=== PATIENT | female | born 1985 | race American Indian/Alaskan Native ===

== ENCOUNTER 2016-06-18 03:28 | Emergency (ER) | payer OTHER ==
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
[~2016-06-18 03:28] MED LIST: ALEVE220 M1 PO; ATARAX PO; HYDROXYZINE HCL25 M1 DOB; KEFLEX500 M1 PO; KLONOPIN1 MG PO; MACROBID100 MG DOB; MACROBID100 MG PO; MAGIC MOUTHWASH PO; MOBIC15 MG PO; PRENATAL VITAMI1 TA3 PO; PRENATAL1 TA1 PO; SUDAFED PLUS PO; VISTARIL PO; ZANAFLEX4 M1 PO; ZOFRAN ODT4 MG PO
== END 2016-06-18 05:05 | disposition home or self-care (01) ==
LOC: CED 03:28
DX: S01.111A Laceration without foreign body of right eyelid and periocular area, initial encounter (principal); S60.222A Contusion of left hand, initial encounter; F17.200 Nicotine dependence, unspecified, uncomplicated; W22.8XXA Striking against or struck by other objects, initial encounter; Y92.410 Unspecified street and highway as the place of occurrence of the external cause; Z23 Encounter for immunization
CPT/HCPCS: 12011; 70450; 73130; 84703; 90471; 90715; 99284

== ENCOUNTER 2016-06-25 17:48 | Emergency (ER) | payer OTHER ==
--- NOTE | ~2016-06-25 | CR172 ---
[facility] A Service of [facility] & [facility] RADIOLOGY TEXT RESULTS PATIENT: ANICETO OWEN LOCATION: [facility] : 85 UNIT #: [id number] AGE: [address]: Chloé Mott SEX: F ORDER DR: [id number] [facility] [address] [facility]. [place], [place] [address] [id number] E MR#: [id number] Acc #: [id number] NAME: ANICETO OWEN : 1985 SEX: F STUDY DATE/TIME: 06/25/2016 17:25 UNIT: [facility] ROOM: STUDY DESCRIPTION: CR Knee 3 Views Lt Attending Physician: Chloé Mott P.A.-C. Ordering Physician: Chloé Mott P.A.-C. Primary Care Physician: Primary Care Physician No MEDICAL IMAGING REPORT This report is preliminary unless electronic signature is present EXAM Left knee, 3 views COMPARISON September 04, 2015. INDICATIONS 30-year-old female with left knee pain and erythema after falling through the floor of her apartment today. FINDINGS No suprapatellar effusion. No radiopaque foreign body. Bones are anatomically aligned. No evidence of acute fracture or degenerative change. IMPRESSION Normal exam. Dictated by... Michael Crawley M.D. THIS IS AN ELECTRONICALLY VERIFIED REPORT Michael Crawley M.D. at 06/29/2016 8:26 AM THAD/january TD: 06/25/2016 22:10 JOB #: [id number] MEDICAL IMAGING REPORT Page 1 of 1 COPY
== END 2016-06-25 18:39 | disposition home or self-care (01) ==
LOC: CFTX 17:48
DX: S83.411A Sprain of medial collateral ligament of right knee, initial encounter (principal); R11.0 Nausea; F41.9 Anxiety disorder, unspecified; K21.9 Gastro-esophageal reflux disease without esophagitis; Z87.442 Personal history of urinary calculi; W18.30XA Fall on same level, unspecified, initial encounter; Y92.009 Unspecified place in unspecified non-institutional (private) residence as the place of occurrence of the external cause
CPT/HCPCS: 29530; 73562; 99283

== ENCOUNTER 2016-08-06 10:28 | Emergency (ER) | payer OTHER | END 2016-08-06 12:30 | disposition home or self-care (01) | LOC: CFTX 10:28 → CED 10:28 → CFTX 11:55 | DX: J06.9 Acute upper respiratory infection, unspecified (principal); K21.9 Gastro-esophageal reflux disease without esophagitis; Z88.0 Allergy status to penicillin; Z88.2 Allergy status to sulfonamides | CPT/HCPCS: 87651; 99283 ==

== ENCOUNTER → 2016-08-09 | Outpatient (CLI) | payer OTHER ==
[~2016-08-09] MED LIST changes: +BENTYL10 MG PO; +CARAFATE1 GM PO; +COLESTID PO; +HYDROXYZINE HCL25 M1 PO; +PROTONIX PO; +VITAMIN D2000 UNIT PO
--- NOTE | ~2016-08-09 | CT2 ---
[facility] A Service of [facility] & [facility] RADIOLOGY TEXT RESULTS PATIENT: ANICETO OWEN [facility] UNIT #: [id number] AGE: [address]: REMI PAREDES APRN SEX: F ORDER DR: [id number] [facility] [address] [facility]. [place], [place] [address] [id number] O MR#: [id number] Acc #: [id number] NAME: ANICETO OWEN : 1985 SEX: F STUDY DATE/TIME: 08/09/2016 9:35 UNIT: [facility] ROOM: STUDY DESCRIPTION: CT Abd and Pelv W Cont Attending Physician: Remi Paredes Aprn Referring Physician: Remi Paredes Aprn Ordering Physician: Remi Paredes Aprn Primary Care Physician: Remi Paredes Aprn MEDICAL IMAGING REPORT This report is preliminary unless electronic signature is present EXAM CT abdomen and pelvis. INDICATION Bilateral lower quadrant abdominal pain. Mid abdominal pain. Nausea and diarrhea for 5 years. Increasing severity. Gastroesophageal reflux. TECHNIQUE CT abdomen and pelvis with p.o. and IV contrast (100 mL Isovue-370 IV contrast). Coronal and sagittal reconstructions were obtained. This CT exam was performed with one or more of the following radiation dose reduction techniques: automatic exposure control, adjustment of mA and/or kV according to patient size, and iterative reconstruction. COMPARISON 04/26/2015. FINDINGS ABDOMEN: The liver enhances normally. There is mild prominence of the extrahepatic common duct in a patient status post cholecystectomy. The duct measures 6-7 mm in diameter, unchanged from the prior study. There are some tiny calcifications along the posterior margin of the liver at the hepatorenal recess. These are likely small dropped gallstones. There are a few other small calcifications in the peritoneal cavity which supports the presence of dropped gallstones. No focal inflammatory change identified around these areas. The patient is status post cholecystectomy. The pancreas, spleen, adrenal glands, and kidneys are within normal limits. No hydronephrosis. There is a small umbilical hernia. The bowel is not dilated. The appendix is normal. PELVIS: Uterus and ovaries are within normal limits. No pelvic mass or STS. [facility] A Service of [facility] RADIOLOGY TEXT RESULTS PATIENT: ANICETO OWEN LOCATION: [facility] : 85 UNIT #: [id number] AGE: [address]: REMI PAREDES APRN SEX: F ORDER DR: free pelvic fluid. There is bilateral to ligation clips. Bladder is unremarkable. No enlarged pelvic or inguinal lymph nodes. The abdominal aorta is small in caliber measuring 1 cm in diameter. This is unchanged. No acute osseous abnormalities. IMPRESSION 1. No acute findings in the abdomen or pelvis to account for the patient's symptoms. There is no change from the patient's prior study. Dictated by... Jaison Valero M.D. THIS IS AN ELECTRONICALLY VERIFIED REPORT Jaison Valero M.D. at 08/09/2016 6:42 PM LIVAN/ivis TD: 08/09/2016 15:51 JOB #: [id number] MEDICAL IMAGING REPORT Page 1 of 1 COPY
== END | disposition home or self-care (01) ==
LOC: CCAT 08:20
DX: K21.0 Gastro-esophageal reflux disease with esophagitis (principal); R19.7 Diarrhea, unspecified
CPT/HCPCS: 74177; Q9967

== ENCOUNTER 2016-09-08 08:35 | Emergency (ER) | payer OTHER ==
--- NOTE | ~2016-09-08 | CR72 ---
[facility] A Service of [facility] & [facility] RADIOLOGY TEXT RESULTS PATIENT: ANICETO OWEN LOCATION: [facility] : 85 UNIT #: [id number] AGE: [address]: Chloé Mott SEX: F ORDER DR: [id number] [facility] [address] [place], [place] [address] [id number] E MR#: [id number] Acc #: [id number] NAME: ANICETO OWEN : 1985 SEX: F STUDY DATE/TIME: 09/08/2016 9:15 UNIT: [facility] ROOM: STUDY DESCRIPTION: CR Chest Single View Portable Attending Physician: Chloé Mott P.A.-C. Ordering Physician: Chloé Mott P.A.-C. Primary Care Physician: Remi Parks Aprn MEDICAL IMAGING REPORT This report is preliminary unless electronic signature is present EXAM Portable chest, 09/08/2016. HISTORY A 30-year-old woman, short of air with symptoms beginning today. History of irregular heart rate. COMPARISON STUDIES 12/23/2015. FINDINGS AP upright portable chest demonstrates normal cardiac size and configuration. Hilar structures and mediastinal contours are preserved. Bilateral lungs are expanded and clear. Costophrenic angles are clear. IMPRESSION Negative chest. Dictated by... Edgar Esteves M.D. THIS IS AN ELECTRONICALLY VERIFIED REPORT Edgar Esteves M.D. at 09/08/2016 12:22 PM Aleena TD: 09/08/2016 12:03 JOB #: [id number] MEDICAL IMAGING REPORT Page 1 of 1 COPY
--- NOTE | ~2016-09-08 | EKG ---
PATIENT: ANICETO OWEN UNIT #: [id number] Ventricular Rate: 88 BPM Atrial Rate: 88 BPM P-R Interval: 140 ms QRS Duration: 104 ms Q-T Interval: 350 ms QTC Calculation(Bezet): 423 ms P Ensign: 38 degrees Calculated R Ensign: 26 degrees Calculated T Ensign: 28 degrees Diagnosis Line: Normal sinus rhythm Diagnosis Line: Incomplete right bundle branch block Diagnosis Line: Otherwise normal ECG Diagnosis Line: When compared with ECG of 23-DEC-2015 04:31, Diagnosis Line: No significant change was found Diagnosis Line: Confirmed by KATHIE YORK MD ([id number]) on 09/08/2016 Diagnosis Line: 5:43:29 PM INTERPRETING MD: CHELA ARTIS
[~2016-09-08 08:35] MED LIST changes: -BENTYL10 MG PO; -CARAFATE1 GM PO; -COLESTID PO; -HYDROXYZINE HCL25 M1 PO; -PROTONIX PO; -VITAMIN D2000 UNIT PO
[2016-09-08 09:25] LABS: BASOPHIL% 0.4 % (0-2.5); EOSINOPHIL% 0.5 % (0.0-7.0); HEMATOCRIT 42.6 % (35.0-45.0); HEMOGLOBIN 14.1 gm/dL (12.0-16.0); LYMPHOCYTE# 1.7 X10e3 (1.0-3.5); LYMPHOCYTE% 17.8 % (17.0-45.0); MEAN CELL VOLUME 87.1 FL (83-96); MEAN CORPUSCULAR HEMOGLOBIN 28.8 PG (28-34); MEAN CORPUSCULAR HGB CONC 33.1 g/dL (30-36); MONOCYTE# 0.6 X10e3 (0-1.0); MONOCYTE% 6.6 % (3.0-12.0); NEUTROPHIL# 7.1 X10e3 (1.5-7.1); NEUTROPHIL% 74.7 % (40-75); PLATELET COUNT 230 X10e3 (140-420); RED BLOOD COUNT 4.89 X10e (3.90-5.30); RED CELL DISTRIBUTION WIDTH 13.9 % (11.0-15.5); WHITE BLOOD COUNT 9.5 X10e3 (4.0-10.5)
[2016-09-08 09:26] LABS: DIFF IND NO
[2016-09-08 09:40] LABS: PARTIAL THROMBOPLASTIN TIME 27.9 SECONDS (23.5-31.3); PROTHROMBIN TIME (PATIENT) 10.4 SECONDS (10.0-11.7)
[2016-09-08 09:52] LABS: ALBUMIN SERUM 4.1 g/dL (3.5-5.0); BILIRUBIN, DIRECT 0.1 mg/dL (0.0-0.2); BILIRUBIN,INDIRECT 0.1 mg/dL (0.0-0.9); BILIRUBIN,TOTAL 0.2 mg/dL (0.2-2.0); BUN/CREATININE RATIO 13.33; CALCIUM SERUM 9.2 mg/dL (8.4-10.2); CREATININE SERUM 0.6 mg/dL (0.6-1.4); GLOM FILT RATE Estimated 122.3 mL/min (>60); POTASSIUM 3.7 mmol/L (3.5-5.1); PROTEIN TOTAL SERUM 7.8 g/dL (6.0-8.3)
[2016-09-08 10:05] LABS: POC - CKMB <1.0 ng/mL (0.0-7.9); POC - TROPONIN <0.05 ng/mL (<=0.05)
== END 2016-09-08 10:48 | disposition home or self-care (01) ==
LOC: CED 08:35
PROVIDERS: Physician Assistant
DX: R06.02 Shortness of breath (principal); F41.9 Anxiety disorder, unspecified; Z90.49 Acquired absence of other specified parts of digestive tract; Z98.51 Tubal ligation status; Z87.891 Personal history of nicotine dependence; Z88.0 Allergy status to penicillin; Z88.2 Allergy status to sulfonamides; Z88.1 Allergy status to other antibiotic agents; Z88.8 Allergy status to other drugs, medicaments and biological substances
CPT/HCPCS: 36415; 71010; 80048; 80076; 82553; 84484; 85025; 85379; 85610; 85730; 93005; 94640; 96374; 99285; J2060

== ENCOUNTER 2016-09-26 13:08 | Observation (INO) | payer OTHER ==
[~2016-09-26] VITALS: Ht 165.1 cm; Wt 110.0 kg
--- NOTE | ~2016-09-26 | OR ---
Unit #: [id number] #: [id number] Patient: ANICETO OWEN [id number] [address] [address] [id number] I MR#: [id number] NAME: ANICETO OWEN ROOM: [facility] Date of Procedure: 09/27/2016 Admission Date: 09/26/2016 Surgeon: Moises Peacock M.D. : 1985 Attending Physician: Blair Wagoner M.D. Primary Care Physician: Remi Parks Aprn OPERATIVE REPORT PROCEDURE PERFORMED EGD with biopsies. INDICATIONS A 30-year-old female with hematemesis, chronic persistent reflux and also with chronic diarrhea undergoing evaluation with upper endoscopy. MEDICATIONS Monitored anesthesia. POSTOPERATIVE FINDINGS 1. Small segment of Leon esophagus, biopsies taken. 2. Normal stomach, biopsies taken looking for Helicobacter pylori. 3. Normal duodenum and distal duodenum. Biopsies taken looking for celiac disease. 4. No clear signs of acute bleeding or stigmata of recent bleeding was seen. PLAN 1. Continue with PPI therapy and reflux precautions. 2. Follow up on pathology report. DESCRIPTION OF PROCEDURE The patient was explained of the procedure, risks, and benefits along with risks and benefits of anesthesia. She was brought to the endoscopy room. Propofol anesthesia was given. Bite block was placed. The scope was passed down the mouth and esophagus, stomach, duodenum, and distal duodenum. Findings as described. Biopsies taken. Gently, I pulled the scope out of the patient's mouth. She tolerated it well. No major complications. Dictated by... Lori Benson/arnaldo TD: 09/27/2016 10:43 JOB #: [id number] Unit #: [id number] #: [id number] Patient: ANICETO OWEN OPERATIVE REPORT Page 1 of 1 X Moises Peaocck MD PROCEDURE OPERATIVE NOTE
--- NOTE | ~2016-09-26 | DS ---
Unit #: [id number] #: [id number] Patient: ANICETO OWEN [id number] [address] [address] [id number] I MR#: [id number] NAME: ANICETO OWEN ROOM: [facility] Age: 30 Sex: F Admission Date: 09/26/2016 : 1985 Discharge Date: 09/27/2016 Attending Physician: Blair Wagoner M.D. Primary Care Physician: Remi Parks Aprn DISCHARGE SUMMARY REASON FOR ADMISSION Severe heartburn, coffee ground emesis. HISTORY OF PRESENT ILLNESS/HOSPITAL COURSE The patient is a 30-year-old female with a prior history of GERD, IBS, anxiety and nephrolithiasis who presented secondary to above. Please see H and P for complete details. She was noted to be heme positive in the emergency room. She was placed on a Protonix drip, and consultation was placed to Dr. Peacock of gastroenterology service. The patient ultimately underwent upper GI endoscopy, as well as biopsy, early this morning. It did show findings consistent with Leon esophagus. Numerous biopsies were obtained, as well. PPI therapy at b.i.d. dosing was recommended, and the patient was felt to be stable to be discharged home if she was able to tolerate lunch. At the present time she states that she feels much better. She will be discharged after lunch with the understanding she will follow up with Dr. Peacock as an outpatient in approximately 4-6 weeks. Her PPI therapy will be increased to b.i.d. dosing. Her other routine home medications will remain as is. No changes have been made with the exception of increasing her PPI. Appropriate dietary modifications have been discussed with the patient. She expressed understanding and agreement at time of discharge. FINAL DISCHARGE DIAGNOSES 1. Intractable gastroesophageal reflux disease. 2. Leon esophagus. 3. Coffee ground emesis, now resolved. 4. Anxiety. 5. Irritable bowel syndrome. 6. Prior history of nephrolithiasis. DISCHARGE MEDICATIONS 1. Colestid 1 gram p.o. b.i.d. 2. Carafate 1 gram p.o. q.6/q.a.c. 3. Bentyl 10 mg p.o. t.i.d. p.r.n. 4. Protonix 40 mg p.o. b.i.d. 5. Atarax 25 mg p.o. q.6 p.r.n. Dictated by... Blair Wagoner M.D. Unit #: [id number] #: [id number] Patient: ANICETO OWEN Frank PICKARD/flor TD: 09/28/2016 09:38 JOB #: [id number] DISCHARGE SUMMARY Page 1 of 1 X Blair Wagoner MD X DISCHARGE SUMMARY
--- NOTE | ~2016-09-26 | HP ---
Unit #: [id number] #: [id number] Patient: ANICETO OWEN [id number] [facility] [address] [facility]. [place], [place] [address] [id number] I MR#: [id number] NAME: ANICETO OWEN ROOM: [address] Age: 30 Sex: F Admission Date: 09/26/2016 : 1985 Attending Physician: Laura La M.D. Primary Care Physician: Remi Parks Aprn HISTORY AND PHYSICAL CHIEF COMPLAINT Severe heartburn, coffee-ground emesis. HISTORY OF PRESENT ILLNESS The patient is a 30-year-old female with past medical history of GERD, IBS, anxiety, nephrolithiasis, "irregular heartbeat", who presented to the emergency department for evaluation of the above. The patient states that she has had abdominal pain or three to four months. She states that it is in the upper abdomen. She describes it as "a constant ache." She denies any exacerbating or alleviating factors. She denied any change in weight. She has had diarrhea for three to four months. She reports seven bouts of diarrhea within the past 24 hours. Yesterday she vomited three to four times coffee-ground emesis. Today she noted bright red blood admixed with vomit. In the emergency department initial pulse and blood pressure were 89 and 138/77 respectively. She was noted to be heme positive. Hemoglobin is 12.9. She was given 80 mg of Protonix followed by Protonix drip at 8 mg per hour. She received 4 mg of Zofran. She is being admitted to [facility] for evaluation and further treatment. Of note, the patient has never had endoscopy. She states that she does have an appointment with an unknown GI physician in September. PAST MEDICAL HISTORY 1. "Irregular heartbeat." The patient does not see a technical writing lead/mgr. She was told that she had an irregular heartbeat during . 2. GERD. 3. Anxiety. 4. Irritable bowel syndrome. 5. Nephrolithiasis. PAST SURGICAL HISTORY 1. Cholecystectomy. 2. Bilateral tubal ligation. SOCIAL HISTORY The patient lives with her and daughter. There is no tobacco use. She reports occasional alcohol use. She denies illicit drug use although she did have a tox screen December 23, 2015 that was positive for cocaine. She is starting a job at [employer] next week. FAMILY HISTORY Unit #: [id number] #: [id number] Patient: ANICETO OWEN Family history is notable for her mother having reflux. ALLERGIES Phenergan, Percocet, Cipro, penicillin, sulfa. HOME MEDICATIONS Hydroxyzine, dicyclomine, sucralfate, Protonix, colestipol. The patient states that she has also been taking over the counter Zantac. REVIEW OF SYSTEMS A complete review of systems is negative except as indicated in the HPI. The patient states that she has been taking up to five [id number] Zantac tablets daily with no relief of symptoms. DIAGNOSTIC STUDIES LABORATORY: Complete blood count is completely normal. Urinalysis is essentially normal. Urine tox screen is negative. Comprehensive metabolic panel notable for potassium of 3.2, alkaline phosphatase 95, lipase is 24, alcohol level is less than 5. PHYSICAL EXAMINATION VITAL SIGNS: Temperature is 99. Pulse 89. Respirations 18. Blood pressure 138/77. Oxygen saturation is 99% on room air. GENERAL: The patient is a very pleasant female who is awake and alert, in no acute distress. HEENT: The head is atraumatic. Mucous membranes are moist. NECK: Neck is supple. Trachea is midline. CARDIOVASCULAR: Regular rate and rhythm. LUNGS: Lungs are clear to auscultation bilaterally with no increased work of breathing. ABDOMEN: Abdomen is soft. She is tender to palpation in the epigastric area. Bowel sounds are present in all four quadrants. EXTREMITIES: Nontender, with no pedal edema. NEUROLOGIC: The patient is awake and alert. She follows commands. PSYCHIATRIC: Mood and affect are normal. The patient is cooperative. SKIN: Demonstrates multiple tattoos. ASSESSMENT The patient is a 30-year-old female with: 1. Gastrointestinal bleed. The patient received 80 mg of Protonix in the emergency department followed by Protonix drip at 8 mg per hour. She has never had endoscopy. The patient's initial hemoglobin is 12.9. 2. Abdominal pain. 3. Gastroesophageal reflux disease. 4. Irritable bowel syndrome. 5. Anxiety. 6. Nephrolithiasis. 7. History of "irregular heartbeat." PLAN 1. Admit for observation to med/surg. 2. Clear liquid diet for possible endoscopy. 3. N.p.o. after midnight. 4. Normal saline at 125 mL an hour. 5. Protonix drip at 8 mg per hour. 6. Hemoglobin and hematocrit q.6 h. 7. Stool for ova and parasites, C. diff., culture and sensitivity. Unit #: [id number] #: [id number] Patient: JULIA SPAULDINGANICETO ROMERO 8. Consult Dr. Peacock regarding GI bleed. 9. Hemoglobin and hematocrit q.6 h. 10. P.r.n. Zofran. 11. Check magnesium level. 12. Potassium and magnesium protocol. 13. Repeat labs in the morning including magnesium. 14. SCDs for DVT prophylaxis. 15. Additional workup and consultants based on above. Dictated by Lori Ruggiero/kassidy TD: 09/26/2016 20:40 JOB #: [id number] HISTORY AND PHYSICAL Page 1 of 1 X Laura La MD X HISTORY AND PHYSICAL
--- NOTE | ~2016-09-26 | BMI ---
[facility] Nutrition Therapy DATE: 09/27/16 Patient: ANICETO DUMONT SPAULDING Physician: SARI Address: [address] [place] [address] Room/Bed: [address] [place] [address], Zip: [place] [address] Admit Date: 09/26/16 Date of : [birth year] Height: 5 5 Weight: 242 110 HIGH BMI NOTE: DX: 30 Y.O. FEMALE ADMITTED FOR SEVERE HEARTBURN, COFFEE GROUND EMESIS ANTHROPOMETRICS: 5'4", WT: 242# (110 KG), BMI: 41.5 DIET: NPO RECOMMENDATIONS: 1. ONCE MEDICALLY FEASIBLE, ADVANCE DIET INDICATED TO HEALTHY HEART TO PROMOTE GRADUAL WEIGHT LOSS TOWARDS HEALTHY BMI (19.0-25.0) OR +/-10%IBW RD WILL F/U PER PROTOCOL Respectfully, VANESSA PATHAK MS, RD, LD [facility] and Nutrition[facility] cc: client file
--- NOTE | ~2016-09-26 | CO ---
Unit #: [id number] #: [id number] Patient: ANICETO OWEN [id number] [address] [address] [id number] I MR#: [id number] NAME: ANICETO OWEN ROOM: 216 Age: 30 Sex: F Admission Date: 09/26/2016 : 1985 Attending Physician: Blair Wagoner M.D. Primary Care Physician: Remi Parks Aprn Consultation Date: 09/27/2016 CONSULTATION REPORT REASON FOR CONSULTATION Hematemesis. HISTORY OF PRESENTING ILLNESS Ms. Yost is a pleasant 30-year-old female. She presented with 3 days history of recurrent coffee-ground emesis. She has longstanding acid reflux. She was taking multiple medications. She states that it has not really made any difference. She denies dysphagia. She does have some epigastric pain. She has chronic irregular bowel movements, mostly diarrhea. She has irritable bowel syndrome, never had been evaluated for the same. She was noted to be Hemoccult positive in the emergency room. PAST MEDICAL HISTORY/SURGICAL HISTORY Significant for regular heartbeat, anxiety, irritable bowel syndrome, nephrolithiasis. She is status post cholecystectomy and tubal ligation. SOCIAL HISTORY Nonsmoker, rare alcohol. History of substance abuse. FAMILY HISTORY Noncontributory. ALLERGIES Phenergan, Percocet, Cipro, penicillin, and sulfa. MEDICATIONS AT HOME Included; 1. Sucralfate. 2. Protonix. 3. Colestipol. 4. Dicyclomine. 5. Hydroxyzine. REVIEW OF SYSTEMS A complete 10-point system was done, which was unremarkable other than as mentioned above. PHYSICAL EXAMINATION VITAL SIGNS: Stable. Temperature 99, pulse 89, respiratory rate 18, blood pressure 138/77. HEENT: Pupils are equal and reactive. Sclerae anicteric. Oral mucosa moist. NECK: No JVD. No lymphadenopathy. CHEST: Clear to auscultation bilaterally. Unit #: [id number] #: [id number] Patient: ANICETO OWEN CARDIOVASCULAR: Regular rate and rhythm. No murmurs. ABDOMEN: Soft, nontender, and nondistended. EXTREMITIES: Without clubbing, cyanosis, or edema. NEUROLOGIC: Intact. SKIN: Warm and dry. LABORATORY DATA Hemoglobin of 12. Chemistries unremarkable. ASSESSMENT AND PLAN 1. The patient with hematemesis, chronic severe gastroesophageal reflux disease, and epigastric pain. Hemoglobin seems to be stable at this time. We will plan on doing an upper endoscopy for further evaluation. Continue PPI for now and watch hemoglobin and hematocrit. 2. Irregular bowel movements, predominantly diarrhea, check stool studies. Further evaluation to be considered. Thank you, Dr. La, for this interesting consult. We will follow along. Dictated by... Lori Benson/arnaldo TD: 09/27/2016 11:19 JOB #: [id number] CONSULTATION REPORT Page 1 of 1 X Moises Peacock MD X CONSULTATION REPORT
[2016-09-26 16:29] LABS: URINE SOURCE CLEAN CATCH
[2016-09-26 16:36] LABS: BASOPHIL# 0.1 X10e3 (0-0.3); BASOPHIL% 0.8 % (0-2.5); EOSINOPHIL% 0.3 % (0.0-7.0); HEMATOCRIT 38.7 % (35.0-45.0); HEMOGLOBIN 12.9 gm/dL (12.0-16.0); LYMPHOCYTE% 21.6 % (17.0-45.0); MEAN CELL VOLUME 86.7 FL (83-96); MEAN CORPUSCULAR HEMOGLOBIN 28.9 PG (28-34); MEAN CORPUSCULAR HGB CONC 33.4 g/dL (30-36); MEAN PLATELET VOLUME 8.3 FL (6.5-11.5); MONOCYTE# 0.6 X10e3 (0-1.0); MONOCYTE% 6.7 % (3.0-12.0); NEUTROPHIL# 6.6 X10e3 (1.5-7.1); NEUTROPHIL% 70.6 % (40-75); PLATELET COUNT 256 X10e3 (140-420); RED BLOOD COUNT 4.46 X10e (3.90-5.30); RED CELL DISTRIBUTION WIDTH 13.7 % (11.0-15.5); WHITE BLOOD COUNT 9.3 X10e3 (4.0-10.5)
[2016-09-26 16:37] LABS: URINE APPEARANCE TURBID; URINE BILIRUBIN NEG (NEG); URINE BLOOD NEG (NEG); URINE COLOR YELLOW; URINE GLUCOSE NEG (NEG); URINE KETONE NEG (NEG); URINE LEUKOCYTE ESTERASE NEG (NEG); URINE NITRATE NEG (NEG); URINE PH 7.5 (5-8); URINE PROTEIN NEG (NEG); URINE SPECIFIC GRAVITY 1.023 (1.003-1.035); URINE UROBILINOGEN 0.2 MG/DL (NEG)
[2016-09-26 16:38] LABS: DIFF IND NO
[2016-09-26 16:44] LABS: CULTURE INDICATED? NO
[2016-09-26 16:54] LABS: AMPHETAMINE NEG (NEG); BARBITURATES NEG (NEG); BENZODIAZEPINES NEG (NEG); COCAINE NEG (NEG); MARIJUANA NEG (NEG); OPIATES NEG (NEG); TRICYCLIC ANTIDEPRESSANTS NEG (NEG); U METHADONE NEG (NEG)
[2016-09-26 17:07] LABS: ALBUMIN SERUM 4.1 g/dL (3.5-5.0); ALKALINE PHOSPHATASE 95 U/L (32-92); ALT (SGPT) 20 U/L (10-40); AST (SGOT) 18 U/L (10-42); BILIRUBIN, DIRECT 0.1 mg/dL (0.0-0.2); BILIRUBIN,INDIRECT 0.2 mg/dL (0.0-0.9); BILIRUBIN,TOTAL 0.3 mg/dL (0.2-2.0); BLOOD UREA NITROGEN 7 mg/dL (9-23); CALCIUM SERUM 8.9 mg/dL (8.4-10.2); CARBON DIOXIDE 27 mmol/L (22-31); CHLORIDE 105 mmol/L (100-111); CREATININE SERUM 0.7 mg/dL (0.6-1.4); GLOM FILT RATE Estimated 116.3 mL/min (>60); GLUCOSE FASTING 86 mg/dL (70-110); LIPASE 24 U/L (22-51); POTASSIUM 3.2 mmol/L (3.5-5.1); PROTEIN TOTAL SERUM 7.6 g/dL (6.0-8.3); SODIUM 138 mmol/L (135-145)
[2016-09-26 17:09] LABS: ALCOHOL BLOOD <5 mg/dL (0)
[2016-09-26] MEDS ORDERED: VITAMIN D2000 UNIT PO (20:16)
[2016-09-26] MEDS ORDERED: CARAFATE1 GM PO (20:17)
[2016-09-26] MEDS ORDERED: COLESTID PO (20:17)
[2016-09-26] MEDS ORDERED: PROTONIX PO (20:18)
[2016-09-26] MEDS ORDERED: BENTYL10 MG PO (20:18)
[2016-09-26] MEDS ORDERED: HYDROXYZINE HCL25 M1 PO (21:32)
[2016-09-26 22:42] LABS: HEMATOCRIT 37.2 % (35.0-45.0); HEMOGLOBIN 12.2 gm/dL (12.0-16.0); MEAN CELL VOLUME 87.5 FL (83-96); MEAN CORPUSCULAR HEMOGLOBIN 28.7 PG (28-34); MEAN CORPUSCULAR HGB CONC 32.8 g/dL (30-36); MEAN PLATELET VOLUME 8.4 FL (6.5-11.5); RED BLOOD COUNT 4.25 X10e (3.90-5.30); RED CELL DISTRIBUTION WIDTH 13.6 % (11.0-15.5); WHITE BLOOD COUNT 10.4 X10e3 (4.0-10.5)
[2016-09-27 04:24] LABS: HEMATOCRIT 35.8 % (35.0-45.0); MEAN CELL VOLUME 87.1 FL (83-96); MEAN CORPUSCULAR HEMOGLOBIN 29.3 PG (28-34); MEAN CORPUSCULAR HGB CONC 33.6 g/dL (30-36); MEAN PLATELET VOLUME 8.5 FL (6.5-11.5); RED BLOOD COUNT 4.11 X10e (3.90-5.30); RED CELL DISTRIBUTION WIDTH 13.4 % (11.0-15.5); WHITE BLOOD COUNT 9.6 X10e3 (4.0-10.5)
[2016-09-27 04:40] LABS: ALBUMIN SERUM 3.5 g/dL (3.5-5.0); BILIRUBIN,TOTAL 0.2 mg/dL (0.2-2.0); BUN/CREATININE RATIO 8.57; CALCIUM SERUM 8.4 mg/dL (8.4-10.2); CREATININE SERUM 0.7 mg/dL (0.6-1.4); GLOM FILT RATE Estimated 116.3 mL/min (>60); POTASSIUM 3.9 mmol/L (3.5-5.1); PROTEIN TOTAL SERUM 6.4 g/dL (6.0-8.3)
[2016-09-27 11:13] LABS: HEMATOCRIT 38.8 % (35.0-45.0); HEMOGLOBIN 12.7 gm/dL (12.0-16.0); MEAN CELL VOLUME 88.4 FL (83-96); MEAN CORPUSCULAR HEMOGLOBIN 28.8 PG (28-34); MEAN CORPUSCULAR HGB CONC 32.6 g/dL (30-36); MEAN PLATELET VOLUME 8.3 FL (6.5-11.5); RED BLOOD COUNT 4.39 X10e (3.90-5.30); RED CELL DISTRIBUTION WIDTH 13.7 % (11.0-15.5); WHITE BLOOD COUNT 6.6 X10e3 (4.0-10.5)
== END 2016-09-27 15:22 | disposition home or self-care (01) ==
LOC: CED 13:08 → CEDOF 19:50 → C2A 19:50 → CEDOF 20:03 → CED 20:03 → C2A 21:10 → CEDOF 21:10 → C2A 21:10
PROVIDERS: Emergency Medicine; Family Medicine
DX: K29.50 Unspecified chronic gastritis without bleeding (principal); K21.0 Gastro-esophageal reflux disease with esophagitis; K29.80 Duodenitis without bleeding; F41.9 Anxiety disorder, unspecified; K58.0 Irritable bowel syndrome with diarrhea; E66.9 Obesity, unspecified; Z68.41 Body mass index [BMI] 40.0-44.9, adult; Z87.442 Personal history of urinary calculi; Z88.0 Allergy status to penicillin; Z88.2 Allergy status to sulfonamides; Z88.1 Allergy status to other antibiotic agents; Z88.5 Allergy status to narcotic agent; Z79.899 Other long term (current) drug therapy; Z90.49 Acquired absence of other specified parts of digestive tract; Z98.51 Tubal ligation status
CPT/HCPCS: 36415; 80048; 80053; 80076; 80307; 81003; 83690; 83735; 84703; 85025; 85027; 88305; 88312; 96374; 96375; 99285; C9113; G0378; G0480; J2270; J2405